=== PATIENT | female | born 2000 ===

== ENCOUNTER 2022-07-24 11:44 | Outpatient (CLI) | payer OTHER | END 2022-07-24 11:59 | disposition home or self-care (01) | LOC: SONOGRAMA 11:44 | PROVIDERS: ATTEND Specialist | DX: O36.4XX9 Maternal care for intrauterine death, other fetus (principal) ==

== ENCOUNTER → 2024-01-19 14:38 | Outpatient (CLI) | payer OTHER | END | disposition home or self-care (01) | LOC: LAB 14:38 | PROVIDERS: ATTEND Specialist | DX: Z34.80 Encounter for supervision of other normal pregnancy, unspecified trimester (principal) ==

== ENCOUNTER 2024-01-19 15:16 | Outpatient (CLI) | payer OTHER | END 2024-01-19 15:25 | disposition home or self-care (01) | LOC: SONOGRAMA 15:16 | PROVIDERS: ATTEND Specialist | DX: Z34.80 Encounter for supervision of other normal pregnancy, unspecified trimester (principal) ==

== ENCOUNTER → 2024-10-12 08:51 | Outpatient (CLI) | payer OTHER ==
[~2024-10-12 08:51] MED LIST: HUMULIN N100 UNIT/2 SUBCUTANEO; HUMULIN R100 UNIT/1 SUBCUTANEO; INSULIN SYRING1 EA29 SUBCUTANEO
== END | disposition home or self-care (01) ==
LOC: PRENATAL 08:51
PROVIDERS: ATTEND Obstetrics & Gynecology Maternal & Fetal Medicine
DX: O36.80X0 Pregnancy with inconclusive fetal viability, not applicable or unspecified (principal); O26.859 Spotting complicating pregnancy, unspecified trimester; Z3A.01 Less than 8 weeks gestation of pregnancy

== ENCOUNTER 2024-10-26 12:38 | Outpatient (CLI) | payer OTHER | END 2024-10-26 12:39 | disposition home or self-care (01) | LOC: PRENATAL 12:38 | PROVIDERS: ATTEND Obstetrics & Gynecology Maternal & Fetal Medicine | DX: O36.80X0 Pregnancy with inconclusive fetal viability, not applicable or unspecified (principal); O26.859 Spotting complicating pregnancy, unspecified trimester; Z3A.08 8 weeks gestation of pregnancy ==